=== PATIENT | female | born 2000 | race Caucasian/White ===

== ENCOUNTER 2019-12-30 11:51 | Emergency (ER) | payer BC, SELFPAY ==
[2019-12-30 12:01] VITALS: BP 149/78; PULSE 83; RESP 19; TEMP 36.9; O2SAT 99; BMI 27.9
--- NOTE | 2019-12-30 12:13 | HMH.EDUTC ---
[facility] Disposition Clinical Impression: GERD (gastroesophageal reflux disease) Qualifiers: Esophagitis presence: without esophagitis Qualified Code(s): K21.9 - Gastro-esophageal reflux disease without esophagitis Disposition: Home, Self-Care Condition on Discharge: Good Instructions: Gastroesophageal Reflux Disease (Alternative Therapy), DI for Gastroesophageal Reflux Disease (GERD), GERD Diet Additional Instructions: Follow GERD diet *Do not lay down or try not to eat or drink prior to going to bed Make sure to sit up at least 30 min after eating or drinking Follow up with Family Doctor if medication is not helping with acid reflux may need to change medication Avoid foods and medications that may cause GERD flares Return if needed Straight to ER if any life threatening symptoms Referrals: Palmira Pastor APRN [Primary Care Provider] - As needed Forms: Work/School Release Time of Disposition: 13:16 Medical Decision Making - Esteban Inquiry Pt receiving controlled substance: No Esteban was queried for this patient: No Vital Signs: 12/30/19 12:01 Temperature 98.4 F Temperature Source Oral Pulse Rate [Radial] 83 Respiratory Rate 19 Blood Pressure [Right Arm] 149/78 H Blood Pressure Mean [Right Arm] 101 Blood Pressure Source [Right Arm] Automatic Cuff Blood Pressure Position [Right Arm] Sitting 02 Sat by Pulse Oximetry 99 Oxygen Delivery Method Room Air Orders (Tests/Meds): ED MEDICATIONS Discontinued Medications Generic Name Dose Route Start Last Admin Trade Name Freq PRN Reason Stop Dose Admin Belladonna Alkaloids 60 ml 12/30/19 12:38 12/30/19 13:11 Gi Cocktail 60ml Udc PO 12/30/19 12:39 60 ml ONCE ONE Administration Medical Decision Narrative: Patient reports that she is feeling much better after GI cocktail [facility] HPI - General Stated complaint: acid reflux, hurts to eat Time Seen by Provider: 12/30/19 12:13 Mode of Arrival: Ambulatory Source of Information: Patient Limitations: No Limitations Description of Symptoms (Recalled from Triage Doc. by RN): acid refulx x 1 week HEENT Symptoms (Recalled from RN notes): No Resp Symptoms (Recalled from RN notes): No Skin Symptoms (Recalled from RN notes): No MS Symptoms (Recalled from RN notes): No Functional Status (Recalled from RN notes): wnl - History of Present Illness Provider Complaint: Patient state that she has a history of acid reflux and takes omeprazole but hasnt helped States that she has taken some over the counter tums also and still having belching up of acid so she came in to see if there was something else she can get - Related Data Previous Rx's Medication Instructions Recorded Azithromycin [Z-Javi 250mg Tab*] 250 mg PO UD DOSE PK #6 tab 10/26/17 predniSONE [Prednisone 20mg 20 mg PO BID #10 tab 10/26/17 Tab] Azithromycin [Zithromax 250mg 250 mg PO DIRECTED #6 tab 05/30/18 tab] Allergies Allergy/AdvReac Type Severity Reaction Status Date / Time Penicillins Allergy Verified 10/26/17 10:39 - Worker's Comp Is this a Worker's Comp case?: No [facility] History - Hepatitis A Screen Drug use history?: No High risk sexual behaviors?: No History of sexually transmitted infection?: No Currently employed?: No Childcare worker?: No Do you have indoor plumbing?: Yes Do you have electricity?: Yes Attestation statement:: This patient has been screened for Hepatitis A risk factors. I have reviewed the patient's past medical history: Yes Medical History: Denies:: Cancer, Diabetes Mellitus Type 1, Diabetes Mellitus Type 2, MRSA Laterality Cases: Bilateral: Myringotomy (Ear Tubes), Tonsillectomy Amputation: No - Social History Smoking Status: Never smoker Alcohol Intake: never Occupational Status: employed Household Members: spouse, children ROS Obtained: Yes All systems reviewed & no additional complaints, Yes Systems reviewed as appropriate & no additional complaints - [employer]
[2019-12-30 13:20] VITALS: BP 149/78; PULSE 83; RESP 19; TEMP 36.9; O2SAT 99
== END 2019-12-30 13:21 | disposition home or self-care (01) ==
PROVIDERS: Emergency Provider Nurse Practitioner; PCP Nurse Practitioner
DX: K21.9 Gastro-esophageal reflux disease without esophagitis (principal)
CPT/HCPCS: 99201

== ENCOUNTER 2021-02-18 16:26 | Emergency (ER) | payer BC, SELFPAY ==
[2021-02-18 16:26] VITALS: BP 127/95; PULSE 100; RESP 18; TEMP 37.1; O2SAT 100; BMI 27.7
--- NOTE | 2021-02-18 16:43 | ECG_ITS ---
APPROVED REPORT Exam: Resting ECG HR:89 bpm ECG Measurements Heart Rate 89 AXES MO 146 P 66 QRSd 86 QRS 75 QT 340 T 52 QTc 413 Conclusion Normal sinus rhythm Possible Left atrial enlargement Borderline ECG Electronically signed by : Raz Cox MD 02/20/2021 12:38:16
[2021-02-18 16:44] VITALS: BMI 27.7
--- NOTE | 2021-02-18 16:45 | XR_ITS ---
PROCEDURE INFORMATION: Exam: XR Chest Exam date and time: 02/18/2021 4:45 PM Age: 20 years old Clinical indication: Chest wall pain; Additional info: Chest pain TECHNIQUE: Imaging protocol: XR of the chest. Views: 2 views. COMPARISON: No relevant prior studies available. FINDINGS: Lungs: Unremarkable. No consolidation. Pleural spaces: Unremarkable. No pleural effusion. No pneumothorax. Heart/Mediastinum: Unremarkable. No cardiomegaly. Bones/joints: Unremarkable. IMPRESSION: No acute findings.
[2021-02-18 17:10] VITALS: BP 120/76; PULSE 71; RESP 20; O2SAT 100
[2021-02-18 17:27] LABS: Basophils # 0.1 K/mm3 (0-0.2); Basophils % 1.5 % (0.1-2.0); Chloride 101 mmol/L (98-107); Eosinophils # 0.1 K/mm3 (0.0-0.4); Eosinophils % 1.4 % (0.1-12.0); Hematocrit 44.2 % (37.0-47.0); Hemoglobin 14.5 g/dL (12.2-16.2); Lymphocytes # 1.7 K/mm3 (0.7-4.5); Lymphocytes % 18.7 % (10-50); Mean Corpuscular HGB Conc 32.9 g/dL (31.8-35.4); Mean Corpuscular Hemoglobin 30.5 pg (27.0-31.2); Mean Platelet Volume 9.3 fl (7.4-10.4); Monocytes # 0.6 K/mm3 (0.1-1.0); Monocytes % 6.1 % (1.7-9.3); Neutrophils # 6.6 K/mm3 (1.8-7.8); Neutrophils % 72.2 % (37.0-80.0); Platelet Count 275 K/mm3 (142-424); Potassium 3.4 mmoL/L (3.5-5.1); Red Blood Count 4.75 M/mm3 (4.20-5.40); Red Cell Distribution Width 12.8 % (11.5-17.5); Sodium 139 mmol/L (136-145); White Blood Count 9.2 K/mm3 (4.8-10.8)
[2021-02-18 17:30] VITALS: BP 120/75; PULSE 75; RESP 21; O2SAT 98
[2021-02-18 17:30] LABS: Anion Gap 13.4 mEq/L (5-15); Blood Urea Nitrogen 16 mg/dl (7-17); Calcium 9.5 mg/dl (8.4-10.2); Carbon Dioxide 28 mmol/L (22.0-30.0); Creatinine Clearance Estimated 181 mL/min (50-200); Estimated Glomerular Filt Rate 125 ml/min (>60); GFR (African American) 151 ML/MIN (>60); Glucose 100 mg/dl (74-100)
--- NOTE | 2021-02-18 17:41 | HMH.EDGENADL ---
ED Disposition Clinical Impression: Musculoskeletal chest pain Disposition: Home, Self-Care Condition on Discharge: Fair Referrals: Palmira Pastor APRN [Primary Care Provider] - - Critical Care Critical Care Time: No Attestation: On 02/18/21, the high probability of a clinically significant, sudden or life threatening deterioration of the following system(s) required my full and direct attention, intervention and personal management. The time I documented below is in addition to time spent performing reported procedures but includes the following listed in this critical care notation. Medical Decision Making - Medical Records Medical records reviewed: Yes: I reviewed the patient's medical records. - Esteban Inquiry Pt receiving controlled substance: No Esteban was queried for this patient: No Vital Signs: 02/18/21 16:26 02/18/21 17:10 02/18/21 17:30 Temperature 98.8 F Temperature Source Oral Pulse Rate 71 75 Pulse Rate [Right Radial] 100 H Respiratory Rate 18 20 21 Blood Pressure 120/76 120/75 Blood Pressure [Right Arm] 127/95 H Blood Pressure Mean 90 88 Blood Pressure Mean [Right Arm] 105 Blood Pressure Source [Right Arm] Automatic Cuff Blood Pressure Position [Right Arm] Sitting 02 Sat by Pulse Oximetry 100 100 98 Oxygen Delivery Method Room Air 02/18/21 18:00 02/18/21 18:30 Temperature Temperature Source Pulse Rate 78 81 Pulse Rate [Right Radial] Respiratory Rate 19 15 Blood Pressure 120/75 125/66 Blood Pressure [Right Arm] Blood Pressure Mean 86 96 Blood Pressure Mean [Right Arm] Blood Pressure Source [Right Arm] Blood Pressure Position [Right Arm] 02 Sat by Pulse Oximetry 100 99 Oxygen Delivery Method - Lab Data Lab results reviewed: Yes: I reviewed the patient's lab results. Lab Results 02/18/21 17:09: WBC 9.2, RBC 4.75, Hgb 14.5, Hct 44.2, MCV 93.0, MCH 30.5, MCHC 32.9, RDW 12.8, Plt Count 275, MPV 9.3, Neut % (Auto) 72.2, Lymph % (Auto) 18.7, Glynn % (Auto) 6.1, Eos % (Auto) 1.4, Baso % (Auto) 1.5, Neut # (Auto) 6.6, Lymph # (Auto) 1.7, Glynn # (Auto) 0.6, Eos # (Auto) 0.1, Baso # (Auto) 0.1 02/18/21 17:09: Sodium 139, Potassium 3.4 L, Chloride 101, Carbon Dioxide 28, Anion Gap 13.4, BUN 16, Creatinine 0.60, Estimated Creat Clear 181, Estimated GFR 125, Est GFR ( Amer) 151, Glucose 100, Calcium 9.5, Troponin I < 0.01 Result diagrams: 02/18/21 17:09 02/18/21 17:09 Orders (Tests/Meds): ORDERS Category Date Time Status Troponin I Q3H Lab 02/18/21 20:00 Ordered Troponin I Q3H Lab 02/18/21 23:00 Ordered Medical Decision Narrative: Patient is a 20-year-old female past medical history presenting to the ED with chest tightness. Patient is awake, alert, not in acute distress. Patient is hemodynamically stable, afebrile. Patient's physical exam is unremarkable. DDX includes but is not limited to patient's, arrhythmia, certain for ACS, PE. Given this a CBC, BMP, troponin, EKG, chest x-ray is performed. His lab work is unremarkable, EKG shows a normal sinus rhythm without any ST elevations or depressions. Has been having chest pain for approximately 2 days initial troponin was negative. patient does not want to wait for her second troponin to result. At this point patient is stable for discharge. Patient is given strict return precautions and follow-up instructions. General Adult HPI - General Chief complaint: PAIN Stated complaint: chest tightness Time Seen by Provider: 02/18/21 17:41 Mode of Arrival: Ambulatory Limitations: No Limitations Description of Symptoms (Recalled from ER Triage Doc. by RN): Pt reports intermittent pain in L breast area radiating to L shoulder and down L arm. Pt reports last week she began having pain in posterior head and L side of neck radiating down L arm. Pt reports for the past 2 days no pain in neck only in L breast area and down arm. Pt reports she has been having HALL. Pt reports a family hx of h
[2021-02-18 17:55] LABS: Troponin I < 0.01 ng/ml (0.00-0.034)
[2021-02-18 18:00] VITALS: BP 120/75; PULSE 78; RESP 19; O2SAT 100
[2021-02-18 18:30] VITALS: BP 125/66; PULSE 81; RESP 15; O2SAT 99
[2021-02-18 20:05] VITALS: BP 118/79; PULSE 84; RESP 14; TEMP 37.1; O2SAT 98
== END 2021-02-18 20:15 | disposition home or self-care (01) ==
PROVIDERS: Emergency Provider Emergency Medicine; PCP Nurse Practitioner
DX: R07.89 Other chest pain (principal); E78.5 Hyperlipidemia, unspecified
CPT/HCPCS: 71046; 80048; 84484; 85025; 93005; 99283

== ENCOUNTER → 2021-05-25 07:52 | Outpatient (CLI) | payer BC, SELFPAY ==
[2021-05-25 08:40] VITALS: PULSE 77; PULSE 80
== END ==
PROVIDERS: PCP Nurse Practitioner; Visit Provider Nurse Practitioner
DX: R06.09 Other forms of dyspnea (principal); R68.89 Other general symptoms and signs; Z87.09 Personal history of other diseases of the respiratory system
CPT/HCPCS: 94060; 94640; 94727; 94729

== ENCOUNTER → 2021-05-29 12:47 | Outpatient (CLI) | payer BC, SELFPAY ==
--- NOTE | 2021-05-29 12:53 | CA_ITS ---
APPROVED REPORT EXAM: Comprehensive 2D, Doppler, and color-flow Echocardiogram Stage Set Up Worker: Itzel Julio RVT Ht: 5 ft 6 in Wt: 172lbs BSA: 1.88 BP: 123/67 mmHg Indications: HALL,ASTHMA,ABN EKG,HX COVID 02/17 2D Dimensions LVOT 2.03 cm (M/F) 1.5-2.5 LA Volume 14.10 mL LA Volume Index 7.54 mL/m2 (M/F) 16-34 M-Mode Dimensions RVDd 1.74 cm (0.9-2.6) LA Diam 3.13 cm (1.9-4.0) LVDd 4.49 cm (3.5-5.7) Ao Diam 2.98 cm (2.0-3.7) LVDs 3.02 cm (3.5-5.7) IVSd 0.84 cm (0.6-1.1) PWd 0.67 cm (0.6-1.1) EF (Teich) 61.30% FS 32.70% EDV (Teich) 92.00 mL TAPSE 2.34 (<1.7) ESV (Teich) 35.60 mL LV Diastology E Decel Time 230.00 (160-240 msec) E/A Ratio 1.8 MED E' 13.20 (< 7 cm/sec) E'/MED E' Ratio 8.83 (>14) LAT E' 15.50 (<10 cm/sec) E/LAT E' Ratio 7.52 (>14) Aortic Valve AO Peak GR. 5.80 mmHg Mitral Valve MV E Max Yannick. 117.00 (40-130 cm/s) MV A Velocity 64.00 (40-130 cm/s) E/A Ratio 1.81 MV Decel. Time 230.00 (160-240 ms) MV PHT 67.00 ms Pulmonary Valve PV Peak Velocity 73.00 (50-150 cm/s) Tricuspid Valve TR P. Velocity 156.00 cm/s RAP Estimate 10.00 mmHg RVSP 19.70 mmHg Left Ventricle Left atrium normal size, left ventricle is normal size, there is no concentric left ventricular hypertrophy, estimated ejection fraction 55% with no regional wall motion abnormality, diastolic parameters are within normal range. Right Ventricle Right atrium and right ventricle are normal size and contractility. Aortic Valve Aortic valve is grossly normal, there is no aortic stenosis or aortic insufficiency. Mitral Valve Otherwise grossly normal, there is trace mitral regurgitation. Tricuspid Valve Tricuspid grossly normal, there is trace tricuspid regurgitation. Pulmonic Valve Pulmonic valve is poorly visualized. Great Vessels Aortic root is normal size. Inferior vena cava is normal size with normal inspiratory collapse. Pericardium No significant pericardial effusion noted. Conclusion 1. Normal left ventricular size, preserved left ventricular systolic function, visually estimated ejection fraction 55% with no regional wall motion abnormality, diastolic parameters are within normal range, there is no concentric left ventricular hypertrophy. 2. Trace mitral and tricuspid regurgitation. 3. No significant pericardial effusion. 4. Inferior vena cava is normal size with normal inspiratory collapse. Electronically signed by : Fabricio Torres MD 05/29/2021 15:53:44
--- NOTE | 2021-05-29 13:23 | CT_ITS ---
FINAL REPORT CLINICAL HISTORY: DYPSNEA ON EXERTION FINDINGS: Axial CT images of the chest were obtained with contrast. Coronal reformatted images were also obtained. This study was performed with techniques to keep radiation doses as low as reasonably achievable, (ALARA). Individualized dose reduction techniques using automated exposure control or adjustment of mA and/or KV according to the patient's size were employed. There is no evidence of mediastinal or hilar mass or adenopathy.No axillary mass or adenopathy is identified. On lung window images, no pulmonary mass or dominant pulmonary nodule is identified. There are multiple calcified granulomas in both lungs. No localized pulmonary inflammatory process is identified. Limited images of the upper abdomen reveal no mass or localized inflammatory process. IMPRESSION: No acute process. Multiple calcified granulomas in both lungs. Reviewed, Interpreted and Dictated by Harjeet Petersen III, MD Transcribed by Aleida Bender Authenticated by Harjeet Petersen III, MD on 05/29/2021 02:19:[address] [facility]
== END ==
PROVIDERS: PCP Nurse Practitioner; Visit Provider Nurse Practitioner
DX: R06.00 Dyspnea, unspecified (principal); R06.89 Other abnormalities of breathing
CPT/HCPCS: 71260; 93306; Q9967

== ENCOUNTER 2021-12-10 09:47 | Day surgery (SDC) | payer BC, SELFPAY ==
[2021-12-08 15:57] VITALS: BMI 30.3
[2021-12-10 10:13] LABS: Urine Pregnancy, HCG Qual. Negative (Negative)
[2021-12-10 10:43] VITALS: BP 135/82; PULSE 84; RESP 16; TEMP 36.6; O2SAT 98
[2021-12-10 11:53] VITALS: O2SAT 97
--- NOTE | 2021-12-10 12:10 | HMH.SCOPE ---
Procedure: Date: 12/10/21 Patient Date of :: 2000 Procedure Performed:: Diagnostic EGD Indications:: Chronic abdominal pain Performing Provider:: Renae Jimenez MD Referring Provider:: Palmira Pastor Sedation:: Propofol Procedure:: The gastroscope was gently passed through the incisoral orifice into the oral cavity and under direct visualization the esophagus was intubated. The endoscope was passed down the esophagus, through the stomach, and into the duodenum. Color, texture, mucosa, and anatomy of the esophagus, stomach, and duodenum were carefully examined with the scope. Findings:: Oropharynx: normal Esophagus: normal EG Junction: intact at 40 cm Cardia: normal Fundus: normal Body: normal Antrum: normal Duodenal bulb: normal Duodenum (second and third portion): normal Impression: Normal EGD Recommendations:: Conservative symptomatic therapy for abdominal migraine Complications:: None Estimated blood obtained (mL): 0
--- NOTE | 2021-12-10 12:13 | HMH.SCOPE ---
Procedure: Date: 12/10/21 Patient Date of :: 2000 Procedure Performed:: Diagnostic colonoscopy Indications:: Chronic abdominal pain Performing Provider:: Renae Jimenez MD Referring Provider:: Palmira Pastor Sedation:: Propofol Procedure:: After placing the patient in the left lateral decubitus position, the colonoscopy was gently inserted into the rectum and under direct visualization advanced to the cecum which was identified by transillumination in the right lower quadrant, identification of the ileocecal valve, appendiceal orifice, and cecal strap. Color, texture, mucosa, and anatomy of the colon were carefully examined with the scope. Findings:: Anal canal: normal Rectum: normal Sigmoid colon: normal without polyps or inflammatory changes Descending colon: normal without polyps or inflammatory changes Splenic flexure: normal Transverse colon: normal without polyps or inflammatory changes Hepatic flexure: normal Ascending colon: normal without polyps or inflammatory changes Cecum: normal Terminal ileum: not visualized Impression: Normal colonoscopy Recommendations:: Symptomatic therapy as clinically indicated Repeat exam at age 45 or so Complications:: None Estimated blood obtained (mL): 0
[2021-12-10 12:15] VITALS: BP 89/66; PULSE 71; RESP 18; TEMP 36.2; O2SAT 95
--- NOTE | 2021-12-10 12:20 | EXP.ANES.CKL ---
PFSH PFS Medical History Allergies Asthma Hyperlipidemia Urinary tract infection Surgical History (Updated 12/10/21 @ 10:41 by Shanika Recinos RN) History of placement of ear tubes History of tonsillectomy Hx of adenoidectomy Family History Grandmother Ductal carcinoma Family history of hypertension Family history of diverticulitis of colon Family history of hypothyroidism Grandfather Family history of myocardial infarction Family history of TIAs Family history of diabetes mellitus type II Family history of gout Father Family history of myocardial infarction Family history of hypertension Family history of diverticulitis of colon Mother Family history of COPD (chronic obstructive pulmonary disease) Family history of diabetes mellitus type II Family history of acute congestive heart failure Social History Smoking Status: Current every day smoker alcohol intake: never substance use type: denies use current occupational status: employed Travel in the last 8 weeks: None household members: spouse and children current occupational exposures/hazards: No [facility] Anesthesia Checklist Patient Identification Patient Identification: Arm Band and Family Structural Data Admitted From: Direct Admit Planned Operative Procedure/s: EGD, and Colostomy Consent for Planned Operative Procedure(s) Verified: Yes Verified Documents: Surgical Consent and History and Physical NPO Status Verified Time NPO: 00:00 Additional verifications Patient : No Anesthesia Reactions: No Hx Blood Transfusions: No Blood Transfusion Reaction: No Cephalosporin Allergy: No Previous Colonoscopy: No Airway Assessment C-Spine Mobility Assessed: Yes TMJ Mobility Assessed: Yes Dentition: Good Dentition Neurological Assessment Level of Consciousness: Awake, Alert and Appropriate Hx Seizures: No Numbness or tingling in extremities: No Genitourinary Assessment Voided insurance verification specialist to O.R.: Yes Anesthesia Plan Anesthesia Risk discussed: Yes ASA Class: II Anesthesia Type: MAC
[2021-12-10 12:25] VITALS: BP 112/74; PULSE 79; RESP 17; O2SAT 97
[2021-12-10 12:35] VITALS: BP 87/57; PULSE 66; RESP 17; O2SAT 98
[2021-12-10 12:45] VITALS: BP 87/59; PULSE 65; RESP 18; O2SAT 99
== END 2021-12-10 13:00 | disposition home or self-care (01) ==
PROVIDERS: PCP Nurse Practitioner; Visit Provider Internal Medicine Gastroenterology
PROC: 0DJ08ZZ Inspection of Upper Intestinal Tract, Via Natural or Artificial Opening Endoscopic (ICD-10-PCS; CPT 43235; principal; 2021-12-10 11:00)
DX: R10.9 Unspecified abdominal pain (principal); Z72.0 Tobacco use; Z79.899 Other long term (current) drug therapy
CPT/HCPCS: 45378; 43235; 81025

== ENCOUNTER → 2022-01-19 16:20 | Outpatient (CLI) | payer BC, SELFPAY ==
--- NOTE | 2022-01-19 16:58 | XR_ITS ---
PROCEDURE INFORMATION: Exam: XR Cervical Spine Exam date and time: 01/19/2022 5:00 PM Age: 21 years old Clinical indication: Neck pain; Additional info: Neck pain, eval for stenosis, myelopathy TECHNIQUE: Imaging protocol: Radiologic exam of the cervical spine. Views: 4 or 5 views. COMPARISON: CT CHEST W CON 05/29/2021 1:37 PM FINDINGS: Bones/joints: Normal. No acute fracture. Normal alignment. Soft tissues: Unremarkable. IMPRESSION: No acute findings.
[2022-01-19 19:00] LABS: Vitamin B12 392 pg/mL (239-931)
== END ==
PROVIDERS: PCP Nurse Practitioner; Visit Provider Nurse Practitioner Family
DX: R42 Dizziness and giddiness (principal); M54.2 Cervicalgia; R29.2 Abnormal reflex; R51.9 Headache, unspecified; G47.8 Other sleep disorders
CPT/HCPCS: 36415; 72052; 82607; 82746

== ENCOUNTER → 2022-01-26 13:48 | Outpatient (CLI) | payer BC, SELFPAY ==
--- NOTE | 2022-01-26 13:48 | US_ITS ---
FINAL REPORT CLINICAL HISTORY: pelvic pain FINDINGS: Transvaginal sonographic images of the pelvis were obtained. The uterus measures 5.5 x 3.8 x 2.3 cm. The endometrium measures 10 mm, which is within normal limits. No uterine mass is identified. The right ovary measures 2.9 cm in length and left ovary measures 2.1 cm in length. Ovaries have normal morphology with blood flow noted on Doppler exam. There is no evidence of free fluid. IMPRESSION: Unremarkable pelvic ultrasound. Reviewed, Interpreted and Dictated by Judy Maldonado MD Transcribed by Aleida Bender Authenticated and [facility]
== END ==
PROVIDERS: PCP Nurse Practitioner; Visit Provider Obstetrics & Gynecology
DX: R10.2 Pelvic and perineal pain (principal)
CPT/HCPCS: 76830

== ENCOUNTER → 2022-01-27 13:35 | Outpatient (CLI) | payer BC, SELFPAY ==
--- NOTE | 2022-01-27 13:41 | XR_ITS ---
FINAL REPORT CLINICAL HISTORY: r/o metal in eyes prior to MRI FINDINGS: Orbits Two views were obtained. No metallic foreign body is identified. IMPRESSION: No foreign body identified. Reviewed, Interpreted and Dictated by Lai Lester MD Transcribed by Rosangela Villegas Authenticated and [facility]
--- NOTE | 2022-01-27 17:09 | MR_ITS ---
PROCEDURE INFORMATION: Exam: MR Cervical Spine Without Contrast Exam date and time: 01/27/2022 5:05 PM Age: 21 years old Clinical indication: Neck pain; Additional info: Neck pain, abn reflexes, eval for myelopathy TECHNIQUE: Imaging protocol: Magnetic resonance imaging of the cervical spine without contrast. COMPARISON: CR XR CERVICAL SPINE W FLEX/EXT 01/19/2022 5:00 PM FINDINGS: Alignment grossly normal. Signal intensity within the bone marrow normal. Spinal cord normal. Visualized portions of the brain in the posterior fossa is also normal. Annular disk bulge and/or protrusions C6-C7 No marrow edema C2-C3: Central canal and neural foramina are normal. C3-C4: Central canal and neural foramina are normal. C4-C5: Central canal and neural foramina are normal. C5-C6: Central canal and neural foramina are normal. C6-C7: Central canal and neural foramina are normal. C7-T1: Central canal and neural foramina are normal. IMPRESSION: Unremarkable MRI cervical spine. Spinal cord is normal.
--- NOTE | 2022-01-27 17:09 | MR_ITS ---
PROCEDURE INFORMATION: Exam: MR Head Without Contrast Exam date and time: 01/27/2022 5:05 PM Age: 21 years old Clinical indication: Dizziness; Additional info: Eval for mass, tumor, lesion. Headaches. Floaters bilateral eyes. Blurred vision bilateral eyes. X 1-2 years TECHNIQUE: Imaging protocol: Magnetic resonance imaging of the head without contrast. COMPARISON: CR XR ORBIT BILATERAL MIN 4V 01/27/2022 1:43 PM FINDINGS: Brain: Basilar cisterns are normal. Tectum normal. Cerebral ventricles: Normal. No ventriculomegaly. Pituitary gland and sella: Sella normal. Pre-pontine region, suprasellar region, and cerebellar angles are normal. Bones/joints: Clivus normal. Calvarium is normal marrow signal. Paranasal sinuses: Polyp versus retention cysts right and left maxillary sinus. Mastoid air cells: Normal as visualized. No mastoid effusion. Orbital cavities: Unremarkable. Soft tissues: Soft tissues are unremarkable Other findings: No bleed, mass, or shift of structures. Diploe is normal. No diffusion restricted segments. IMPRESSION: No acute intracranial process. Impression.
--- NOTE | 2022-01-27 17:09 | MR_ITS ---
Examination: MR angiogram of the brain. Indication: Headache. Eval for dissection aneurysm or stenosis. Technique: Imaging protocol: Magnetic resonance angiography head without contrast. [id number] (TOF) technique was utilized for this exam. Exam focused on the arteries. Findings: Axial projected images were reviewed. Right petrous carotid, cavernous carotid, supraclinoid carotid: Normal Right M1 and M2 segments: Normal Right A1 and A2 segments: Normal Left petrous and cavernous carotids and supraclinoid carotid: Normal Left M1 and M2 segments: Normal Left A1 and A2 segments: Normal Right and left posterior inferior cerebellar arteries: For normal Basilar artery: Normal Superior cerebellar arteries and the left and right P1 and P2 segments: Normal Impression: Unremarkable MRA of the brain.
== END ==
PROVIDERS: PCP Nurse Practitioner; Visit Provider Nurse Practitioner Family
DX: R42 Dizziness and giddiness (principal); H53.9 Unspecified visual disturbance; R51.9 Headache, unspecified; M54.2 Cervicalgia; H05.53 Retained (old) foreign body following penetrating wound of bilateral orbits; R93.89 Abnormal findings on diagnostic imaging of other specified body structures; R29.2 Abnormal reflex; Z82.49 Family history of ischemic heart disease and other diseases of the circulatory system
CPT/HCPCS: 70200; 70544; 70551; 72141; 76376

== ENCOUNTER → 2022-02-08 14:53 | Outpatient (CLI) | payer BC, SELFPAY | PROVIDERS: PCP Nurse Practitioner; Visit Provider Nurse Practitioner Family | DX: R51.9 Headache, unspecified (principal); G47.8 Other sleep disorders; G25.81 Restless legs syndrome; R06.83 Snoring | CPT/HCPCS: G0399 ==

== ENCOUNTER 2022-02-25 15:30 | Outpatient (RCR) | payer BC, SELFPAY | END 2022-02-25 15:35 | disposition home or self-care (01) | LOC: PT 15:30 | PROVIDERS: PCP Nurse Practitioner; Visit Provider Nurse Practitioner Family | DX: G44.86 Cervicogenic headache (principal); M54.2 Cervicalgia; R42 Dizziness and giddiness; R29.2 Abnormal reflex | CPT/HCPCS: 97010; 97014; 97110; 97163; G0283 ==

== ENCOUNTER → 2022-12-15 14:48 | Outpatient (CLI) | payer BC, SELFPAY ==
--- NOTE | 2022-12-15 14:49 | US_ITS ---
PROCEDURE INFORMATION: Exam: US Right Breast, Complete Exam date and time: 12/15/2022 3:15 PM Age: 22 years old Clinical indication: Breast pain; Bilateral TECHNIQUE: Imaging protocol: Complete ultrasound of all four quadrants of the right breast and the retroareolar regions, including ultrasound of the axilla when performed. COMPARISON: No relevant prior studies available. FINDINGS: Breast: Sonographic images of the right breast including the retroareolar region, all 4 quadrants and the axilla do not demonstrate any solid or cystic masses. No architectural distortion or acoustical shadowing. No skin thickening or axillary adenopathy. IMPRESSION: No sonographic evidence of malignancy. ASSESSMENT: BI-RADS Category 1: Negative
--- NOTE | 2022-12-15 14:49 | US_ITS ---
PROCEDURE INFORMATION: Exam: US Left Breast, Complete Exam date and time: 12/15/2022 3:33 PM Age: 22 years old Clinical indication: Breast pain; Bilateral TECHNIQUE: Imaging protocol: Complete ultrasound of all four quadrants of the left breast and the retroareolar regions, including ultrasound of the axilla when performed. COMPARISON: No relevant prior studies available. FINDINGS: Breast: Sonographic images of the left breast including the retroareolar region, all 4 quadrants and the axilla do not demonstrate any solid or cystic masses. No architectural distortion or acoustical shadowing. No skin thickening or axillary adenopathy. IMPRESSION: No sonographic evidence of malignancy. ASSESSMENT: BI-RADS Category 1: Negative
== END ==
PROVIDERS: PCP Nurse Practitioner; Visit Provider Obstetrics & Gynecology
DX: N64.4 Mastodynia (principal)
CPT/HCPCS: 76641

== ENCOUNTER 2023-04-26 16:41 | Emergency (ER) | payer OTHER, SELFPAY ==
[2023-04-26 16:55] VITALS: BP 141/88; PULSE 99; RESP 18; TEMP 38.7; O2SAT 99; BMI 31.8
[2023-04-26] MEDS: ACETAMINOPHEN 500MG TAB 1000 MG PO (17:21)
[2023-04-26 17:40] LABS: UTC Influenza A Antigen Negative (Negative); UTC Influenza B Antigen Negative (Negative); UTC Strep Screen (Rapid) Negative (Negative)
--- NOTE | 2023-04-26 17:46 | ED_ITS ---
Discharge Plan Disposition Patient Disposition: Home, Self-Care Condition: Good Prescriptions Prescriptions: New ondansetron 4 mg tablet,disintegrating 4 mg PO Q8H PRN (Reason: nausea and vomiting) Qty: 10 0RF guaifenesin [Mucinex] 600 mg tablet extended release 12hr 600 mg PO BID PRN (Reason: cough) Qty: 20 0RF No Action albuterol sulfate 90 mcg/actuation HFA aerosol inhaler 2 puff inhalation Q6H PRN (Reason: SOA) budesonide-formoterol [Symbicort] 160-4.5 mcg/actuation HFA aerosol inhaler 1 puff inhalation DAILY omeprazole 40 mg capsule,delayed release(DR/EC) 40 mg PO DAILY fluticasone propionate 50 mcg/actuation spray,suspension 1 spray intranasal DAILY montelukast [Singulair] 10 mg Tablet 10 mg PO DAILY cholecalciferol (vitamin D3) [Vitamin D3] 125 mcg (5,000 unit) Tablet 125 mcg PO DAILY Referrals Follow up/Referrals: Palmira Pastor APRN [Primary Care Provider] - See instructions Activity Restrictions/Add. Instructions Additional Instructions/Restrictions: *Monitor Temp, Over the counter Motrin or Tylenol as directed/as needed Tylenol every 4 hours and Motrin every 6 hours (as long as your family doctor has told you that you can take it) for fever or pain. and straight to ER if unable to lower temp less than 101.0 after medication given *Warm salt water gargles may help to soothe the throat *Throat Lozenges? *Warm fluids like tea with honey may help to soothe the throat? *Sleep elevated *Humidifier/Vaporizer Your throat swab was sent for culture. Those results are typically sent to your primary care. Be sure to follow up in 2-3 days with your family doctor/primary care physician if no improvement so they can review those result and treat if necessary. If you don?t have a primary care doctor, I recommend you get one but in the mean time, you will have to return to a walk in clinic Follow up IMMEDIATELY for new or worsening symptoms or no Noticeable improvement over the next 48-72 hours. 911 for difficulty breathing or swallowing You were tested for today for Upper Respiratory Panel with COVID19 your test result should be back in the next 24hours, you may check your results on the [facility] My Health Portal if your COVID or Influenza is positive you must Quarantine for 5 days Clinical Impressions Clinical Impression: Viral syndrome Stand Alone Forms Stand Alone Forms: Work/School Release Instructions Patient Instructions: DI for Fever (Symptom) -- Adult, DI for Viral Syndrome Discharge ED Provider: Marcia Junior [facility] [place] HPI General Stated complaint: body aches, fever Mode of Arrival: Ambulatory Source of Information: Patient Limitations: No Limitations Time Seen by Provider: 04/26/23 17:46 Description of Symptoms (Recalled from Triage Doc. by RN): PATIENT C/O BODY ACHES, FEVER, COUGH, CONGESTION, SCRATCHY THROAT, SOA, AND HEADACHE SINCE THIS MORNING HEENT Symptoms (Recalled from RN notes): Yes Resp Symptoms (Recalled from RN notes): Yes Skin Symptoms (Recalled from RN notes): No MS Symptoms (Recalled from RN notes): No Functional Status (Recalled from RN notes): WNL History of Present Illness Provider Complaint: Patient states that she started last night with scratchy throat and cough States that she woke up this morning and felt ok and went to work and was able to work all day then when she got home it hit her she started with chills, body aches, sore throat, cough, nasal congestion and felt a little SOA with cough and headache States family has had strep and flu Related Data Home Medications Medication Instructions Recorded Confirmed cholecalciferol (vitamin D3) 125 125 mcg PO DAILY Supplement 12/08/21 04/26/23 mcg (5,000 unit) tablet (Vitamin D3) montelukast 10 mg tablet 10 mg PO DAILY Allergy symptoms 12/08/21 04/26/23 (Singulair) omeprazole 40 mg capsule,delayed 40 mg PO DAILY 01/07/22 04/26/23 release albuterol sulfate 90 mcg/actuation 2 puff inhalation Q6H PRN SOA 01/18/22 04/26/23 aerosol inhaler fluticasone propionate 50 1 spray intranasal DAILY 02/11/22 04/26/23 mcg/actuation nasal spray,suspension budesonide-formoterol HFA 160 1 puff inhalation DAILY 01/24/24 02/27/24 mcg-4.5 mcg/actuation aerosol inhaler (Symbicort) Previous Rx's Medication Instructions Recorded guaifenesin 600 mg tablet, 600 mg PO BID PRN cough #20 tabs 04/26/23 extended release 12 hr (Mucinex) ondansetron 4 mg disintegrating 4 mg PO Q8H PRN nausea and 04/26/23 tablet vomiting #10 tabs Allergies Allergy/AdvReac Type Severity Reaction Status Date / Time milk Allergy Mild Verified 03/23/23 14:02 Penicillins Allergy Verified 03/23/23 14:02 Worker's Comp Is this a Worker's Comp case?: [facility] Disclaimer: The information contained in this section may have been updated after the patien t was seen, as this information can be updated by other users. Medical History Abnormal uterine bleeding Allergies Asthma Endometriosis diagnosed clinically Hyperlipidemia Normal colonoscopy Urinary tract infection Surgical History History of placement of ear tubes History of tonsillectomy Hx of adenoidectomy Family History Grandmother Ductal carcinoma Family history of hypertension Family history of diverticulitis of colon Family history of hypothyroidism Grandfather Family history of myocardial infarction Family history of TIAs Family history of diabetes mellitus type II Family history of gout Father Family history of myocardial infarction Family history of hypertension Family history of diverticulitis of colon Mother Family history of COPD (chronic obstructive pulmonary disease) Family history of diabetes mellitus type II Family history of acute congestive heart failure Other Cancer Cervical cancer Endometriosis Ovarian cancer Social History Smoking Status: Current every day smoker tobacco type: smokeless tobacco alcohol intake: never substance use type: former substance user and marijuana current occupational status: employed Travel in the last 8 weeks: None household members: other housing: house lives independently: No marital status: single current occupational exposures/hazards: No ROS Obtained: Yes All systems reviewed & no additional complaints except as documented and Yes Systems reviewed as appropriate & no additional complaints except as documented Constitutional Constitutional: Reports system reviewed and no additional complaints, except as documented, Reports as per HPI, Reports body ache, Reports chills, Reports fever(s) and Reports headache(s) ENT Ears, Nose, Mouth, and Throat: Reports system reviewed and no additional comp laints, except as documented, Reports as per HPI, Reports headache(s), Reports nasal congestion and Reports sore throat Cardiovascular Cardiovascular: Reports system reviewed and no additional complaints, except as documented and Reports as per HPI Respiratory Respiratory: Reports system reviewed and no additional complaints, except as documented, Reports as per HPI, Reports chest congestion and Reports cough Gastrointestinal Gastrointestingal: Reports system reviewed and no additional complaints, except as documented, as per HPI and nausea Neurologic Neurologic: Reports headache(s) Physical Exam General General appearance: alert and in no apparent distress ENT ENT exam: Present mucous membranes moist Expanded ENT Exam Nose exam: Absent sinus tenderness (reports congestion) Throat exam: Present other (Pharyngeal erythema note with PND) Chest Chest inspection: Present normal inspection and symmetric chest wall rise Respiratory Respiratory exam: Present normal lung sounds bilaterally; Absent respiratory distress or wheezes Cardiovascular Cardiovascular exam: Present regular rate, normal rhythm and normal heart sounds Abdominal Exam Abdominal exam: Present soft and normal bowel sounds; Absent distention or tenderness Neurological Exam Neurological exam: Present alert, oriented X3 and normal gait Medical Decision Making Esteban Inquiry Pt receiving controlled substance: No Esteban was queried for this patient: No Vital Signs: 04/26/23 16:55 Temperature 101.6 F H Temperature Source Oral Pulse Rate [Left Brachial] 99 H Respiratory Rate 18 Blood Pressure [Left Arm] 141/88 H Blood Pressure Mean [Left Arm] 105 Blood Pressure Source [Left Arm] Automatic Cuff Blood Pressure Position [Left Arm] Sitting 02 Sat by Pulse Oximetry 99 Oxygen Delivery Method Room Air Lab Data Lab results reviewed: Yes I reviewed the patient's lab results. Lab Results 04/26/23 16:59: Influenza Type A Ag Negative, Influenza Type B Ag Negative, Strep Scn Rapid Clinic Negative Orders (Tests/Meds): ED MEDICATIONS Generic Name Dose Route Start Last Admin Trade Name Freq PRN Reason Stop Dose Admin Acetaminophen 1,000 mg 04/26/23 17:07 04/26/23 17:21 Acetaminophen 500mg Tab PO 04/26/23 17:08 1,000 mg ONCE ONE Administration ORDERS Category Date Time Status Strep Screen Confirmation Stat Micro 04/26/23 16:59 Received
[2023-04-26 17:49] VITALS: BP 141/88; PULSE 99; RESP 18; TEMP 37.8; O2SAT 99
[2023-04-26 18:20] LABS: Adenovirus,PCR Not Detected (NotDetected); Coronavirus 19, PCR Not Detected (NotDetected); Coronavirus 229E Not Detected (NotDetected); Coronavirus NL63 Not Detected (NotDetected); Coronavirus OC43 Not Detected (NotDetected); Coronovirus HKU1,PCR Not Detected (NotDetected); Human Metapneumovirus Not Detected (NotDetected); Influenza A, PCR Not Detected (NotDetected); Influenza AH1, 2009 Not Detected (NotDetected); Influenza AH1, PCR Not Detected (NotDetected); Influenza B, PCR Not Detected (NotDetected); Parainfluenza 1, PCR Not Detected (NotDetected); Parainfluenza 2, PCR Not Detected (NotDetected); Parainfluenza 3, PCR Not Detected (NotDetected); Parainfluenza 4, PCR Not Detected (NotDetected); Respiratory Syncytial Virus Not Detected (NotDetected); Rhinovirus/Enterovirus Not Detected (NotDetected)
[2023-04-27 08:38] LABS: Influenza AH3,PCR Detected (NotDetected)
== END 2023-04-26 18:02 | disposition home or self-care (01) ==
PROVIDERS: Emergency Provider Nurse Practitioner; PCP Nurse Practitioner
DX: J10.1 Influenza due to other identified influenza virus with other respiratory manifestations (principal); R50.9 Fever, unspecified; R06.02 Shortness of breath; R05.9 Cough, unspecified; R51.9 Headache, unspecified; R07.0 Pain in throat; R09.81 Nasal congestion; F17.290 Nicotine dependence, other tobacco product, uncomplicated; K21.9 Gastro-esophageal reflux disease without esophagitis; R11.0 Nausea
CPT/HCPCS: 87581; 87632; 87635; 87798; 87804; 87880; 99204; 99212; G0463

== ENCOUNTER 2023-07-01 07:18 | Outpatient (CLI) | payer OTHER, SELFPAY ==
--- NOTE | 2023-07-01 07:22 | US_ITS ---
FINAL REPORT CLINICAL HISTORY: EPIGASTRIC PAIN FINDINGS: Sonographic images of the right upper quadrant were obtained. The pancreas is partially obscured.The liver has an unremarkable appearance.The gallbladder appears normal without evidence of gallstones.There is no evidence of biliary ductal dilatation.The common duct measures 2 mm. Limited images of the right kidney are unremarkable. IMPRESSION: Unremarkable right upper quadrant ultrasound. Reviewed, Interpreted and Dictated by Judy Maldonado MD Transcribed by Mohini Gan Authenticated and [facility]
== END 2023-07-01 23:59 | disposition home or self-care (01) ==
LOC: RAD 07:18
PROVIDERS: PCP Nurse Practitioner; Visit Provider Nurse Practitioner
DX: R10.13 Epigastric pain (principal)
CPT/HCPCS: 76705

== ENCOUNTER 2023-10-06 16:16 | Emergency (ER) | payer OTHER, SELFPAY ==
[2023-10-06 16:18] VITALS: BP 128/84; PULSE 75; RESP 18; TEMP 37; O2SAT 100; BMI 29.8
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
--- NOTE | 2023-10-06 16:40 | CT_ITS ---
PROCEDURE INFORMATION: Exam: CT Cervical Spine Without Contrast Exam date and time: 10/06/2023 6:18 PM Age: 23 years old Clinical indication: Injury or trauma; Constriction/strangulation; Additional info: Strangulation, pain TECHNIQUE: Imaging protocol: Computed tomography of the cervical spine without contrast. Radiation optimization: All CT scans at this facility use at least one of these dose optimization techniques: automated exposure control; mA and/or kV adjustment per patient size (includes targeted exams where dose is matched to clinical indication); or iterative reconstruction. COMPARISON: CT HEAD/BRAIN WO CON 10/06/2023 6:18 PM FINDINGS: Bones: Vertical lucency involving the left transverse process of C1 best seen on image 17 of series 5 and image 28 of series 4 compatible with nondisplaced fracture. Vertebral bodies otherwise maintained in height and alignment. Lungs: Lung apices are normal. Soft tissues: Unremarkable. IMPRESSION: Vertical lucency involving the left transverse process of C1 best seen on image 17 of series 5 and image 28 of series 4 compatible with nondisplaced fracture. Area will be further assessed on CT angiogram of the neck.
--- NOTE | 2023-10-06 16:40 | CT_ITS ---
PROCEDURE INFORMATION: Exam: CT Head Without Contrast Exam date and time: 10/06/2023 6:18 PM Age: 23 years old Clinical indication: Injury or trauma; Constriction/strangulation; Additional info: Strangulation, pain TECHNIQUE: Imaging protocol: Computed tomography of the head without contrast. Radiation optimization: All CT scans at this facility use at least one of these dose optimization techniques: automated exposure control; mA and/or kV adjustment per patient size (includes targeted exams where dose is matched to clinical indication); or iterative reconstruction. COMPARISON: CT CERVICAL SPINE WO CON 10/06/2023 6:18 PM FINDINGS: Brain: Normal. No hemorrhage. Unremarkable white matter. No mass effect. Cerebral ventricles: No ventriculomegaly. Paranasal sinuses: Visualized sinuses are unremarkable. No fluid levels. Mastoid air cells: Visualized mastoid air cells are well aerated. Bones: Unremarkable. No acute fracture. Soft tissues: Unremarkable. IMPRESSION: No acute intracranial abnormality.
--- NOTE | 2023-10-06 16:40 | CT_ITS ---
PROCEDURE INFORMATION: Exam: CTA Neck With Contrast Exam date and time: 10/06/2023 6:21 PM Age: 23 years old Clinical indication: Injury or trauma; Constriction/strangulation; Additional info: Strangulation, pain TECHNIQUE: Imaging protocol: Computed tomographic angiography of the neck with contrast. Exam focused on the cervical segments of the vasculature. 3D rendering (Not supervised by radiologist): MIP and/or 3D reconstructed images were created by the technologist. Radiation optimization: All CT scans at this facility use at least one of these dose optimization techniques: automated exposure control; mA and/or kV adjustment per patient size (includes targeted exams where dose is matched to clinical indication); or iterative reconstruction. Contrast material: ISOVUE 370; Contrast volume: 80 ml; Contrast route: INTRAVENOUS (IV); COMPARISON: CT CERVICAL SPINE WO CON 10/06/2023 6:18 PM FINDINGS: Right common carotid artery: No stenosis. No dissection or occlusion. Right internal carotid artery: No stenosis of the extracranial segment. No dissection or occlusion. Right external carotid artery: No occlusion or stenosis of the origin. Left common carotid artery: No stenosis. No dissection or occlusion. Left internal carotid artery: No stenosis of the extracranial segment. No dissection or occlusion. Left external carotid artery: No occlusion or stenosis of the origin. Right vertebral artery: No stenosis. No dissection or occlusion. Left vertebral artery: No stenosis. No dissection or occlusion. Soft tissues: Normal. No significant soft tissue swelling. Bones/joints: Nondisplaced fracture of the C1 left transverse process without CT angiography evidence of vascular injury. IMPRESSION: Nondisplaced fracture of the C1 left transverse process without CT angiography evidence of vascular injury. REFERENCES: NASCET CRITERIA. The degree of stenosis in the cervical segment of the internal carotid artery is based on NASCET criteria. Normal is no stenosis. Mild is less than 50% stenosis. Moderate is 50-69% stenosis. Severe is 70% to 99% stenosis. Total occlusion is no detectable patent lumen.
--- NOTE | 2023-10-06 16:41 | CT_ITS ---
PROCEDURE INFORMATION: Exam: CTA Head With Contrast, Arteriography Exam date and time: 10/06/2023 6:21 PM Age: 23 years old Clinical indication: Injury or trauma; Constriction/strangulation; Additional info: Strangulation, pain, injury TECHNIQUE: Imaging protocol: Computed tomographic angiography of the head with contrast. Exam focused on the arteries. 3D rendering (Not supervised by radiologist): MIP and/or 3D reconstructed images were created by the technologist. Radiation optimization: All CT scans at this facility use at least one of these dose optimization techniques: automated exposure control; mA and/or kV adjustment per patient size (includes targeted exams where dose is matched to clinical indication); or iterative reconstruction. Contrast material: ISOVUE 370; Contrast volume: 80 ml; Contrast route: INTRAVENOUS (IV); COMPARISON: CT HEAD/BRAIN WO CON 10/06/2023 6:18 PM FINDINGS: ANTERIOR CIRCULATION: Right internal carotid artery: Intracranial segment is patent with no significant stenosis. No aneurysm. Right middle cerebral artery: No occlusion or significant stenosis. No aneurysm. Right anterior cerebral artery: No occlusion or significant stenosis. No aneurysm. Left internal carotid artery: Intracranial segment is patent with no significant stenosis. No aneurysm. Left middle cerebral artery: No occlusion or significant stenosis. No aneurysm. Left anterior cerebral artery: No occlusion or significant stenosis. No aneurysm. POSTERIOR CIRCULATION: Right vertebral artery: No occlusion or significant stenosis. No aneurysm. Left vertebral artery: No occlusion or significant stenosis. No aneurysm. Basilar artery: No occlusion or significant stenosis. No aneurysm. Right posterior cerebral artery: No occlusion or significant stenosis. No aneurysm. Left posterior cerebral artery: No occlusion or significant stenosis. No aneurysm. Brain: No definite mass, mass effect, or midline shift. Cerebral ventricles: No ventriculomegaly. Bones/joints: Nondisplaced fracture of the C1 left transverse process without CT angiography evidence of vascular injury. Soft tissues: Unremarkable. IMPRESSION: Nondisplaced fracture of the C1 left transverse process without CT angiography evidence of vascular injury.
[2023-10-06 17:05] LABS: Basophils # 0.1 K/mm3 (0-0.2); Basophils % 0.6 % (0.1-2.0); Eosinophils # 0.1 K/mm3 (0.0-0.4); Eosinophils % 0.7 % (0.1-12.0); Hematocrit 43.2 % (37.0-47.0); Hemoglobin 14.5 g/dL (12.2-16.2); Lymphocytes # 1.4 K/mm3 (0.7-4.5); Lymphocytes % 14.7 % (10-50); Mean Corpuscular HGB Conc 33.6 g/dL (31.8-35.4); Mean Corpuscular Hemoglobin 31.5 pg (27.0-31.2); Mean Corpuscular Volume 93.9 fl (81-99); Mean Platelet Volume 8.9 fl (7.4-10.4); Monocytes # 0.5 K/mm3 (0.1-1.0); Monocytes % 5.3 % (1.7-9.3); Neutrophils # 7.3 K/mm3 (1.8-7.8); Neutrophils % 78.6 % (37.0-80.0); Platelet Count 299 K/mm3 (142-424); Red Blood Count 4.61 M/mm3 (4.20-5.40); Red Cell Distribution Width 13.2 % (11.5-17.5); White Blood Count 9.3 K/mm3 (4.8-10.8)
[2023-10-06 17:15] LABS: HCG Qualitative, Serum Negative (Negative)
[2023-10-06 17:18] LABS: Chloride 107 mmol/L (98-107); Potassium 3.8 mmoL/L (3.5-5.1); Sodium 138 mmol/L (136-145)
[2023-10-06 17:21] LABS: Anion Gap 7.8 mEq/L (5-15); Blood Urea Nitrogen 12 mg/dl (7-17); Carbon Dioxide 27 mmol/L (22.0-30.0); Creatinine Clearance Estimated 142 mL/min (50-200); Estimated Glomerular Filt Rate 87 ml/min (>60); GFR (African American) 106 ML/MIN (>60)
[2023-10-06 17:22] LABS: Calcium 8.8 mg/dl (8.4-10.2); Glucose 90 mg/dl (74-100)
[2023-10-06 17:40] VITALS: BP 106/73; PULSE 67; O2SAT 97
--- NOTE | 2023-10-06 17:41 | PC.NURSE ---
Rounded on pt. Updated that she is waiting on scans. Pt voiced understanding. Call light within reach.
--- NOTE | 2023-10-06 18:09 | PC.NURSE ---
pt to ct
--- NOTE | 2023-10-06 18:24 | PC.NURSE ---
PT returned to room from RAD
[2023-10-06] MEDS: 0.9 % SODIUM CHLORIDE 50 ML VIAL IV (18:26)
[2023-10-06] MEDS: SODIUM CHLORIDE 0.9% 10ML SYR (RAD ONLY) 10 ML IV (18:26)
[2023-10-06] MEDS: IOPAMIDOL-370 (76%);100ML BOTTLE 80 ML IV (18:26)
[2023-10-06 18:52] VITALS: BP 125/79; PULSE 65; O2SAT 96
--- NOTE | 2023-10-06 18:53 | PC.NURSE ---
Rounded on pt. Updated that we are waiting on CT results. No needs voiced and call light placed within reach.
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
[2023-10-06 19:32] VITALS: BP 128/83; PULSE 76; RESP 20; TEMP 36.6; O2SAT 99
[2023-10-06] MEDS: NAPROXEN 500MG TABLET 500 MG PO (20:26)
[2023-10-06] MEDS: METHOCARBAMOL 500MG TABLET 500 MG PO (20:26)
[2023-10-06 20:36] VITALS: BP 124/70; PULSE 70; RESP 20; TEMP 36.6; O2SAT 100
== END 2023-10-06 20:39 | disposition home or self-care (01) ==
PROVIDERS: Emergency Provider Emergency Medicine; PCP Nurse Practitioner
DX: S12.001A Unspecified nondisplaced fracture of first cervical vertebra, initial encounter for closed fracture (principal); M54.2 Cervicalgia; Y04.0XXA Assault by unarmed brawl or fight, initial encounter
CPT/HCPCS: 70450; 70496; 70498; 72125; 80048; 84703; 85025; 99285; Q9967

== ENCOUNTER 2024-01-10 16:12 | Outpatient (CLI) | payer OTHER, SELFPAY ==
[2024-01-10 17:04] LABS: Basophils # 0.1 K/mm3 (0-0.2); Basophils % 0.6 % (0.1-2.0); Eosinophils # 0.1 K/mm3 (0.0-0.4); Hematocrit 42.3 % (37.0-47.0); Hemoglobin 14.3 g/dL (12.2-16.2); Lymphocytes # 2.1 K/mm3 (0.7-4.5); Lymphocytes % 18.7 % (10-50); Mean Corpuscular HGB Conc 33.8 g/dL (31.8-35.4); Mean Corpuscular Hemoglobin 31.1 pg (27.0-31.2); Mean Corpuscular Volume 92.1 fl (81-99); Mean Platelet Volume 8.4 fl (7.4-10.4); Monocytes # 0.7 K/mm3 (0.1-1.0); Monocytes % 5.9 % (1.7-9.3); Neutrophils # 8.2 K/mm3 (1.8-7.8); Neutrophils % 73.7 % (37.0-80.0); Platelet Count 316 K/mm3 (142-424); Red Cell Distribution Width 12.9 % (11.5-17.5); White Blood Count 11.1 K/mm3 (4.8-10.8)
[2024-01-16 14:12] LABS: F002-IgE Milk 0.13 kU/L (Class 0/I); F003-IgE Codfish <0.10 kU/L (Class 0); F004-IgE Wheat <0.10 kU/L (Class 0); F010-IgE Sesame Seed <0.10 kU/L (Class 0); F013-IgE Peanut <0.10 kU/L (Class 0); F017-IgE Hazelnut (Filbert) <0.10 kU/L (Class 0); F018-IgE Brazil Nut <0.10 kU/L (Class 0); F020-IgE Almond <0.10 kU/L (Class 0); F024-IgE Shrimp <0.10 kU/L (Class 0); F040-IgE Tuna <0.10 kU/L (Class 0); F041-IgE Salmon <0.10 kU/L (Class 0); F147-IgE Flounder <0.10 kU/L (Class 0); F202-IgE Cashew Nut <0.10 kU/L (Class 0); F256-IgE Walnut <0.10 kU/L (Class 0); F338-IgE Scallop <0.10 kU/L (Class 0); F352 IgE Ara h8 <0.10 kU/L (Class 0); F369-IgE Catfish <0.10 kU/L (Class 0); F447 IgE Ara h6 <0.10 kU/L (Class 0); Immunoglobulin E, Total 48 IU/mL (6-495)
[2024-01-25 14:47] LABS: Miscellaneous Test SCANNED IMAGE
== END 2024-01-10 23:59 | disposition home or self-care (01) ==
LOC: LAB 16:13
PROVIDERS: PCP Nurse Practitioner; Visit Provider Nurse Practitioner
DX: J45.40 Moderate persistent asthma, uncomplicated (principal); R10.84 Generalized abdominal pain; Z91.018 Allergy to other foods
CPT/HCPCS: 82785; 85025; 86003; 86008